=== PATIENT | female | born 2000 | race Caucasian/White ===

== ENCOUNTER 2019-02-13 10:45 | Outpatient (CLI) | payer OTHER ==
[2019-02-13 17:40] LABS: BASOPHILS % (AUTO) 0.7 %; EOSINOPHILS # (AUTO) 0.1 10^3/uL (0.0-0.7); EOSINOPHILS % (AUTO) 1.4 %; HGB - HEMOGLOBIN 13.4 g/dL (12.0-16.0); LYMPHOCYTES # (AUTO) 2.4 10^3/uL (1.5-3.5); LYMPHOCYTES % (AUTO) 41.9 %; MEAN CORPUSCULAR HEMOGLOBIN 30.4 pg (27.0-31.0); MEAN CORPUSCULAR HGB CONC 34.3 g/dL (32.0-36.0); MEAN CORPUSCULAR VOLUME 88.6 fL (81.0-99.0); MEAN PLATELET VOLUME 6.5 fL (7.9-10.8); MONOCYTES # (AUTO) 0.4 10^3/uL (0.0-1.0); MONOCYTES % (AUTO) 6.9 %; NEUTROPHILS # (AUTO) 2.8 10^3/uL (1.5-6.6); NEUTROPHILS % (AUTO) 49.1 %; PLT - PLATELET COUNT 417 10^3/uL (130-450); RED BLOOD COUNT 4.39 10^6/uL (4.20-5.40); RED CELL DISTRIBUTION WIDTH 13.3 % (12.0-15.0); WHITE BLOOD COUNT 5.7 x10^3/uL (4.8-10.8)
[2019-02-13 17:50] LABS: ALBUMIN 4.5 g/dL (3.2-5.5); ALBUMIN/GLOBULIN RATIO 1.5 (1.0-2.2); BILIRUBIN,TOTAL 0.6 mg/dL (0.2-1.0); CALCIUM 10.1 mg/dL (8.5-10.3); CREATININE 0.5 mg/dL (0.4-1.0); TOTAL PROTEIN 7.6 g/dL (6.7-8.2)
[2019-02-13 18:04] LABS: THYROID STIMULATING HORMONE 1.14 uIU/mL (0.34-5.60)
[2019-02-13 18:08] LABS: FREE T4 (FREE THYROXINE) 0.87 ng/dL (0.58-1.64)
== END 2019-02-13 10:46 | disposition home or self-care (01) ==
LOC: LAB.F 10:45
PROVIDERS: ATTEND Physician Assistant Medical
DX: E04.9 Nontoxic goiter, unspecified (principal); J02.9 Acute pharyngitis, unspecified; R53.83 Other fatigue
CPT/HCPCS: 36415; 80053; 84439; 84443; 84481; 85025; 86376; 86800

== ENCOUNTER 2019-02-28 16:48 | Outpatient (CLI) | payer OTHER ==
--- NOTE | 2019-03-01 10:16 | Ultrasound Report ---
Reason: ENLARGED THYROID, SORE THROAT, FATIGUE MALAISE Procedure Date: 02/28/2019 Accession Number: [id number] / [id number] Procedure: US - Head or Neck Soft Tissue CPT Code: FULL RESULT: EXAM: THYROID ULTRASOUND EXAM DATE: 02/28/2019 04:55 PM. CLINICAL HISTORY: Enlarged thyroid, sore throat, fatigue, malaise. COMPARISON: None. TECHNIQUE: Real time sonographic imaging of the thyroid was performed by the site auditor. Multiple manufacturer representative static images were saved for review. FINDINGS: THYROID GLAND: Right Lobe: 6.0 x 2.0 x 1.6 cm, volume 10 cc. Slightly heterogeneous parenchyma. Right Lobe Nodules: None. Left Lobe: 5.0 x 2.3 x 1.5 cm, volume 9 cc. Slightly heterogeneous parenchyma. Left Lobe Nodules: None. Isthmus: 0.6 cm AP. Isthmic Nodules: Benign-appearing sharply marginated wider than tall hypoechoic elliptical nodule measuring 1.0 x 0.2 x 0.4 cm diameter, of doubtful clinical significance. LYMPH NODES: No adenopathy demonstrated in the central or lateral compartment. OTHER: None. IMPRESSION: 1. Mild overall thyroid gland enlargement. 2. Small benign-appearing isthmic nodule of doubtful clinical significance, as described above. Consider follow-up thyroid ultrasound in one year. Management recommendations are based on 2015 [place] [employer] Management Guidelines for Adult Patients with Thyroid Nodules and Differentiated Thyroid Cancer. RADIA
== END 2019-02-28 16:49 | disposition home or self-care (01) ==
LOC: DI 16:48
PROVIDERS: ATTEND Physician Assistant Medical
DX: E04.1 Nontoxic single thyroid nodule (principal); E04.9 Nontoxic goiter, unspecified
CPT/HCPCS: 76536